=== PATIENT | male | born 1960 | race Caucasian/White ===

== ENCOUNTER 2017-12-22 21:52 | Inpatient (IN) ==
[2017-12-22 22:01] VITALS: BMI 26.9
[2017-12-22] MEDS ORDERED: LIDOCAINE HCL 1% SDV IM STA (22:31)
[2017-12-22] MEDS ORDERED: ROCEPHIN IM STA (22:31)
[2017-12-22] MEDS ORDERED: ZITHROMAX PO STA (22:32)
--- NOTE | 2017-12-22 22:36 | ED.PDOC ---
General ED Provider: Dr. ROSHNI PERKINS Chief Complaint: Penile Problem Stated Complaint: Patient states he has had urinary frequency and burning for the past few days. Time Seen by Physician: 22:32 Mode of Arrival: Walk-In Information Source: Patient Exam Limitations: No limitations Nursing and Triage Documentation Reviewed and Agree: Yes Does patient meet sepsis criteria?: No System Inflammatory Response Syndrome: Not Applicable Sepsis Protocol: For patient's 13 years and over: Temp is 96.8 and below OR 101 and greater Pulse >90 BPM Resp >20/minute Acutely Altered Mental Status Are patient's symptoms suggestive of a new infection, such as: -Pneumonia -Skin, Soft Tissue -Endocarditis -UTI -Bone, Joint Infection -Implantable Device -Acute Abdominal Infection -Wound Infection -Meningitis -Blood Stream Catheter Infection -Unknown Complaint Exam - STD Male Complaint/Exam Onset/Duration: 2 days Symptoms Are: Still present Timing: Constant Current Severity: Moderate Location: Reports: Groin, Penis Character: Other (Buring on urination) Aggravating: Reports: Voiding Alleviating: Reports: None Associated Signs and Symptoms: Reports: Dysuria. Denies: Testicular pain Related Surgical History: Reports: None Genitalia Exam: Present: Testes tender, Penile lesions (white discharge noted on the urethra ) Differential Diagnoses: Balanitis, Urethritis, STD, UTI Review of Systems - Review Of Systems Constitutional: Reports: No symptoms Eyes: Reports: No symptoms Ears, Nose, Mouth, Throat: Reports: No symptoms Respiratory: Reports: No symptoms Cardiac: Reports: No symptoms GI: Reports: No symptoms : Reports: Dysuria, Frequency Musculoskeletal: Reports: No symptoms Skin: Reports: No symptoms Neurological: Reports: No symptoms Endocrine: Reports: Increased thirst Hematologic/Lymphatic: Reports: No symptoms All Other Systems: Reviewed and Negative Past Medical History - Past Medical History Previously Healthy: Yes Endocrine: Reports: DM 2 Cardiovascular: Reports: Hypertension Respiratory: Reports: None Hematological: Reports: None Gastrointestinal: Reports: None Genitourinary: Reports: None Neuro/Psych: Reports: None Musculoskeletal: Reports: None Cancer: Reports: None - Surgical History General Surgical History: Reports: None - Family History Family History: Reports: Unknown - Social History Smoking Status: Current every day smoker, Heavy tobacco smoker Hx Substance Use: No Alcohol Screening: Occasionally - Immunizations Tetanus Shot up to Date: (UNKNOWN) Physical Exam - Physical Exam Appearance: Ill-appearing Ill-appearing: Mild Pain Distress: Moderate Eyes: KATINA, EOMI, Conjunctiva clear ENT: Ears normal, Nose normal, Oropharynx normal Neck: Supple Respiratory: Airway patent, Breath sounds clear, Breath sounds equal, Respirations nonlabored Cardiovascular: RRR, Pulses normal, No rub, No murmur GI/: Soft, Nontender, No masses, Bowel sounds normal, No Organomegaly Musculoskeletal: Normal strength Skin: Warm, Dry Neurological: Alert, Oriented Psychiatric: Anxious Physician Notification - Case Discussed Physician Notified: Dr Toussaint Time of Notification: 23:40 (Admit for hypoglycemia ) Critical Care Note - Critical Care Note Total Time (mins): 0 Course - Course Hematology/Chemistry: 12/22/17 22:38 12/22/17 22:38 Orders, Labs, Meds: Lab Review 12/22/17 12/22/17 12/22/17 22:38 22:38 22:40 WBC 7.32 RBC 5.13 Hgb 15.6 Hct 43.6 MCV 85.0 MCH 30.4 MCHC 35.8 H RDW Coeff of Álvaro 12.7 Plt Count 262 Immature Gran % (Auto) 0.3 Neut % (Auto) 56.3 Lymph % (Auto) 29.2 Kinney % (Auto) 11.3 H Eos % (Auto) 2.2 Baso % (Auto) 0.7 Immature Gran # (Auto) 0.0 Neut # (Auto) 4.1 Lymph # (Auto) 2.1 Kinney # (Auto) 0.8 Eos # (Auto) 0.2 Baso # (Auto) 0.1 Sodium 131 L Potassium 4.1 Chloride 97 L Carbon Dioxide 21 Anion Gap 17.1 BUN 12 Creatinine 1.22 H Estimated GFR (MDRD) 61.00 BUN/Creatinine Ratio 9.83 Glucose 669 H* Calcium 9.3 Total Bilirubin 0.6 AST 12 L ALT 20 Alkaline Phosphatase 121 Total Protein 7.7 Albumin 3.6 Globulin 4.1 Albumin/Globulin Ratio 0.88 Urine Color Yellow Urine Clarity Clear Urine pH 5.5 Ur Specific Cadott <=1.005 Urine Protein Negative Urine Glucose (UA) 3+ H Urine Ketones Negative Urine Blood Negative Urine Nitrite Negative Urine Bilirubin Negative Urine Urobilinogen 0.2 Ur Leukocyte Esterase Negative Acetone, Qual 12/22/17 23:25 WBC RBC Hgb Hct MCV MCH MCHC RDW Coeff of Álvaro Plt Count Immature Gran % (Auto) Neut % (Auto) Lymph % (Auto) Kinney % (Auto) Eos % (Auto) Baso % (Auto) Immature Gran # (Auto) Neut # (Auto) Lymph # (Auto) Kinney # (Auto) Eos # (Auto) Baso # (Auto) Sodium Potassium Chloride Carbon Dioxide Anion Gap BUN Creatinine Estimated GFR (MDRD) BUN/Creatinine Ratio Glucose Calcium Total Bilirubin AST ALT Alkaline Phosphatase Total Protein Albumin Globulin Albumin/Globulin Ratio Urine Color Urine Clarity Urine pH Ur Specific Cadott Urine Protein Urine Glucose (UA) Urine Ketones Urine Blood Urine Nitrite Urine Bilirubin Urine Urobilinogen Ur Leukocyte Esterase Acetone, Qual None Orders Category Date Time Status ACTIVITY .Up ad Shavon CARE 12/22/17 23:36 Ordered BLOOD GLUCOSE MONITORING 0630,1100,1700,2100 CARE 12/22/17 23:37 Ordered GIVE HS SNACK 2100 CARE 12/22/17 23:39 Ordered INTAKE & OUTPUT Q8HR CARE 12/22/17 23:36 Ordered VITAL SIGNS Q4HR CARE 12/22/17 23:36 Ordered ADA 1800 GABRIELLA. DIET DIETARY 12/22/17 Breakfast Ordered HS SNACK DIETARY 12/22/17 Dinner Ordered ED IV/MEDIPORT/POWERPORT .ONCE EMERGENCY 12/22/17 23:15 Active ACETONE, QUALITATIVE Stat LAB 12/22/17 23:25 Ordered CBC W/ AUTO DIFF DAILY@0600 LAB 12/23/17 06:00 Ordered CBC W/ AUTO DIFF DAILY@0600 LAB 12/24/17 06:00 Ordered CBC W/ AUTO DIFF Stat LAB 12/22/17 22:38 Completed CHLAMYDIA/GC AMPLIFICATION Stat LAB 12/22/17 22:40 Received COMPREHENSIVE METABOLIC PANEL DAILY@0600 LAB 12/23/17 06:00 Ordered COMPREHENSIVE METABOLIC PANEL DAILY@0600 LAB 12/24/17 06:00 Ordered COMPREHENSIVE METABOLIC PANEL Stat LAB 12/22/17 22:38 Completed HEMOGLOBIN A1C Stat LAB 12/22/17 23:32 Ordered URINALYSIS C & S IF INDICATED Stat LAB 12/22/17 22:40 Completed 0.9 % Sodium Chloride [Saline Flush] MEDS 12/22/17 23:15 Ordered 1 syr IVF PRN PRN Azithromycin [Zithromax] MEDS 12/22/17 22:32 Discontinued 1,000 mg PO ONCE STA Ceftriaxone Sodium [Rocephin] MEDS 12/22/17 22:31 Discontinued 250 mg IM ONCE STA Enoxaparin Sodium [Lovenox] MEDS 12/23/17 09:00 Ordered 40 mg SUBCUT DAILY Insulin Regular, Human [Humulin R] MEDS 12/22/17 23:36 Ordered 0 - 15 unit SUBCUT PRN PRN Lidocaine HCl/Pf [Lidocaine HCl 1% Sdv] MEDS 12/22/17 22:31 Discontinued 0.9 ml IM ONCE STA Ondansetron HCl/Pf [Zofran 4 mg/2 ml] MEDS 12/22/17 23:36 Ordered 4 mg IVP Q6H PRN Sodium Chloride 0.9% [Sodium Chloride] 1,000 ml MEDS 12/22/17 23:45 Ordered IV 150 mls/hr Sodium Chloride 0.9% [Sodium Chloride] 1,000 ml MEDS 12/22/17 23:15 Active IV BOLUS RESUSCITATION STATUS Routine OTHERS 12/22/17 23:36 Ordered Medications Generic Name Dose Route Start Last Admin Trade Name Freq PRN Reason Stop Dose Admin Enoxaparin Sodium 40 mg 12/23/17 09:00 Lovenox SUBCUT DAILY MIKAELA Sodium Chloride 1,000 mls @ 1,000 mls/hr 12/22/17 23:15 Sodium Chloride IV 12/23/17 00:14 BOLUS STA Sodium Chloride 1,000 mls @ 150 mls/hr 12/22/17 23:45 Sodium Chloride IV .Q6H40M MIKAELA Insulin Human Regular 0 - 15 unit 12/22/17 23:36 Humulin R SUBCUT PRN PRN Hyperglycemica Protocol Ondansetron HCl 4 mg 12/22/17 23:36 Zofran 4 Mg/2 Ml IVP Q6H PRN Nausea / Vomiting Sodium Chloride 1 syr 12/22/17 23:15 Saline Flush IVF PRN PRN To flush IV Discontinued Medications Generic Name Dose Route Start Last Admin Trade Name Freq PRN Reason Stop Dose Admin Azithromycin 1,000 mg 12/22/17 22:32 12/22/17 22:45 Zithromax PO 12/22/17 22:33 1,000 mg ONCE STA Administration Ceftriaxone Sodium 250 mg 12/22/17 22:31 12/22/17 22:46 Rocephin IM 12/22/17 22:32 250 mg ONCE STA Administration Lidocaine HCl 0.9 ml 12/22/17 22:31 12/22/17 22:47 Lidocaine Hcl 1% Sdv IM 12/22/17 22:32 0.9 ml ONCE STA Administration Vital Signs: Temp Pulse Resp BP Pulse Ox 12/22/17 21:53 99.5 F 87 20 127/84 98 Departure - Departure Time of Disposition: 23:15 Disposition: ADMITTED INPATIENT Discharge Problem: Hyperglycemia without ketosis Condition: Stable Pt referred to PMD for follow-up: Yes IPMP verified?: No Allergies/Adverse Reactions: Allergies No Known Allergies Allergy (Unverified 01/11/13 23:19) Home Medications: Ambulatory Orders 1 [Unobtainable] 12/22/17
[2017-12-22] MEDS ORDERED: SODIUM CHLORIDE 1,000 ML IV STA (23:15)
[2017-12-22] MEDS ORDERED: ZOFRAN 4 MG/2 ML IVP PRN (23:36)
[2017-12-23] MEDS: SODIUM CHLORIDE 1,000 ML IV SCH ×4 (01:42→15:03)
[2017-12-23] MEDS: HUMULIN R SUBCUT PRN ×4 (05:50→20:21)
[2017-12-23] MEDS: GLUCOTROL PO SCH ×2 (08:36→17:13)
[2017-12-23] MEDS: GLUCOPHAGE PO SCH ×2 (08:38→17:13)
[2017-12-23] MEDS: LOVENOX SUBCUT SCH (08:39)
[2017-12-24] MEDS: SODIUM CHLORIDE 1,000 ML IV SCH (04:46)
[2017-12-24] MEDS: HUMULIN R SUBCUT PRN (06:53)
[2017-12-24] MEDS ORDERED: ZESTRIL PO SCH (09:00)
[2017-12-24] MEDS: GLUCOPHAGE PO SCH (09:56)
[2017-12-24] MEDS: GLUCOTROL PO SCH (09:56)
[2017-12-24] MEDS: LOVENOX SUBCUT SCH (09:57)
[2017-12-24 10:36] VITALS: BP 118/79; TEMP 97.6
--- NOTE | 2017-12-24 14:47 | HP ---
DATE OF SERVICE: 12/23/17 CHIEF COMPLAINT: Burning and frequency of urination and elevated sugar. HISTORY OF PRESENT ILLNESS: 57 year man was found to have a sugar of 669. The patient was seen by Dr. Oscar in the emergency room and A1c was 12.8. Urine was negative for infection. Toxicology is negative. The acetone is negative. The patient is not aware of the diabetes so at that time the patient being admitted to the hospital for hyperosmolar hyperglycemia. REVIEW OF SYSTEMS: CONSTITUTIONAL: No fever, no chills. Elevated blood sugar. HEENT: Normal. ENDOCRINE: No weight gain; no weight loss. CVS: No chest pain. No PND, no orthopnea. No shortness of breath. No PND, no orthopnea. RESPIRATORY: No cough, no congestion. No hemoptysis. GI: No nausea, no vomiting. No abdominal pain. No melena. : No hematuria. No polyuria. Frequency and burning of urination. MUSCULOSKELETAL: No joint swelling. PSYCHIATRIC: Not anxious. No depression. No suicidal thoughts. No homicidal thoughts. SKIN: Intact, no open lesions. PAST MEDICAL HISTORY: History of diarrhea Change in bowel pattern History of GI bleeding History of Gonorrhea Alcohol use Diabetes which is new diagnosis PAST SURGICAL HISTORY: Left broken arm Left middle finger broken PERSONAL HISTORY: The patient does smoke and drinks occasional. Substance abuse disorder in the past. FAMILY HISTORY: CHF Thyroid cancer MEDICATIONS: Bisoprolol Amlodipine ALLERGIES: No known drug allergies PHYSICAL EXAMINATION: V/S: Blood pressure 118/77, respiratory rate 20, heart rate 77, temperature 99.0 with saturation 97%. HEENT: Atraumatic, normocephalic. No scleral icterus. Pallor positive. Mucosa dry. NECK: Supple. No JVD, no bruit. No lymphadenopathy. No thyromegaly. HEART: S1, S2 normal. No murmur. No cyanosis or clubbing. No ascites. LUNGS: Clear to auscultation. No rales or rhonchi. ABDOMEN: Soft, nontender. Bowel sounds are active. No CVA tenderness. No rigidity or guarding. EXTREMITIES: No pedal edema. No cyanosis or clubbing MUSCULOSKELETAL: Normal joints, no swelling. NEUROLOGIC: The patient is SKIN: Intact; no open lesions. LYMPHATIC: No lymph nodes palpable. LABS: Sodium 131, potassium 4.1, chloride 97, bicarb 21, BUN 12, creatinine 1.22 and glucose 669 and today morning is 361. WBC 6.78, hgb 14.7, hct 42.4, plt count 228 ASSESSMENT: 1. Hyperosmolar hyperglycemia 2. New onset diabetes PLAN: 1. Admit patient to the regular floor 2. CBC and CMP today and daily 3. TSH and Lipids 4. Will start the patient on Metformin and Glipizide 5. Accu-checks with coverage TIME SPENT: MORE THAN 65 minutes MTDD
--- NOTE | 2017-12-30 13:09 | DS ---
DATE OF SERVICE: 12/24/17 FINAL DIAGNOSIS: 1. Hyperosmolar hyperglycemia 2. New onset diabetes mellitus, A1c 12.8 3. Hypertension 4. Obesity DISCHARGE INSTRUCTIONS: Discharge the patient home. Lifestyle modification weight loss and diet control been discussed. Followup in the [facility] in with 5-7 days. Stop the Amlodipine Besylate and Ziac. MEDICATIONS AT DISCHARGE/NEW PRESCRIPTIONS: Lisinopril 10mg PO daily Glipizide 10mg PO twice a day Metformin 500mg PO twice a day DIET INSTRUCTIONS: Cardiac and Healthy ACTIVITY: As much as tolerated DISEASE SPECIFIC EDUCATION: Diabetes Accu-checks been discussed and verbalized understanding. HOSPITAL COURSE: Gera Carpenter 57 year old male who came to the hospital complaining of the burning and frequency of urination and seen by Dr. Cho in the emergency room and found to have sugars of 600. The patient was admitted for the hyperosmolar hyperglycemia to the hospital. With the sugars of 600 the patient was started on the Accu-checks with the coverage by the next day the sugars were better. At that time the patient was started on the Metformin 500mg twice a day and Glipizide 10mg PO twice a day. Diet and weight loss been discussed and verbalized understanding. The patient sugars came down to below 300 and did not have any complications or problems. Manager Asset did talk to the patient and he understand the need of diabetic medications and lifestyle modification and weight loss. As the patient been doing good the patient is being discharged home. TIME SPENT: MORE THAN 65 MINUTES MTDD
== END 2017-12-24 12:21 | disposition home or self-care (01) | DRG 695 ==
LOC: ED 21:52 → MEDSURG B 23:40
PROVIDERS: ADMIT Emergency Medicine; ATTEND Emergency Medicine
DX: R30.9 Painful micturition, unspecified (principal); E11.10 Type 2 diabetes mellitus with ketoacidosis without coma; R30.0 Dysuria; F41.9 Anxiety disorder, unspecified; I10 Essential (primary) hypertension; E66.9 Obesity, unspecified; Z68.26 Body mass index [BMI] 26.0-26.9, adult
CPT/HCPCS: 36415; 80053; 80061; 81001; 82009; 82962; 83036; 85025; 87800; 96360; 96372; 97802; 99284

== ENCOUNTER 2018-04-08 09:44 | Emergency (ER) ==
[2018-04-08 09:50] VITALS: BP 157/98; TEMP 97.5; BMI 25.2
--- NOTE | 2018-04-08 10:23 | ED.PDOC ---
General ED Provider: Dr. JENNIFER MADRID Chief Complaint: Respiratory Complaint Stated Complaint: Chest congestion - 2 weeks Time Seen by Physician: 10:23 Mode of Arrival: Walk-In Information Source: Patient Exam Limitations: No limitations Primary Care Provider: GERMAIN RUIZ Nursing and Triage Documentation Reviewed and Agree: Yes Does patient meet sepsis criteria?: No System Inflammatory Response Syndrome: Not Applicable Sepsis Protocol: For patient's 13 years and over: Temp is 96.8 and below OR 101 and greater Pulse >90 BPM Resp >20/minute Acutely Altered Mental Status Are patient's symptoms suggestive of a new infection, such as: -Pneumonia -Skin, Soft Tissue -Endocarditis -UTI -Bone, Joint Infection -Implantable Device -Acute Abdominal Infection -Wound Infection -Meningitis -Blood Stream Catheter Infection -Unknown Review of Systems - Review Of Systems Constitutional: Reports: Malaise Respiratory: Reports: Cough Musculoskeletal: Reports: Other (Had "charley horse" L knee this AM) All Other Systems: Reviewed and Negative Past Medical History - Past Medical History Previously Healthy: Yes Endocrine: Reports: DM 2 Cardiovascular: Reports: Hypertension Respiratory: Reports: None Hematological: Reports: None Gastrointestinal: Reports: None Genitourinary: Reports: None Neuro/Psych: Reports: None Musculoskeletal: Reports: None Cancer: Reports: None - Surgical History General Surgical History: Reports: None - Family History Family History: Reports: Unknown - Social History Smoking Status: Current every day smoker, Heavy tobacco smoker Hx Substance Use: No Alcohol Screening: Occasionally Physical Exam - Physical Exam Appearance: Well-appearing Eyes: KATINA, EOMI ENT: Ears normal, Oropharynx normal Neck: Supple Respiratory: Airway patent, Breath sounds clear Cardiovascular: RRR, Pulses normal GI/: Soft, Nontender Musculoskeletal: Normal strength, ROM intact Skin: Warm, Dry Neurological: Sensation intact, Motor intact, Alert, Oriented Psychiatric: Affect appropriate, Mood appropriate Interpretation - Radiology Interpretation Radiology Interpretation By: Radiologist Radiology Results: No acute changes Exam Interpreted: CXR Critical Care Note - Critical Care Note Total Time (mins): 10 Course - Course Orders, Labs, Meds: Lab Review 04/08/18 12:10 Influ A Molecular Assay Negative by naat Influ B Molecular Assay Negative by naat Orders Category Date Time Status FLU A & B MOLECULAR [FLU A/B MOLECULAR] Stat LAB 04/08/18 12:10 Completed MOLECULAR GROUP A STREP Stat LAB 04/08/18 12:10 Completed CHEST, 2 VIEWS PA & LAT Stat RADS 04/08/18 10:42 Completed Flu and Strep negative Vital Signs: Temp Pulse Resp BP Pulse Ox 04/08/18 09:46 97.5 F L 89 16 157/98 H 96 Departure - Departure Time of Disposition: 12:54 Disposition: HOME SELF-CARE Discharge Problem: Bronchitis Instructions: Acute Bronchitis (ED) Condition: Good Pt referred to PMD for follow-up: Yes (Call for appointment) IPMP verified?: No (No narcotic prescribed) Additional Instructions: Take antibiotic as prescribed; follow up with primary care if not better in 1 week. Prescriptions: Doxycycline Hyclate 100 mg PO BID #20 capsule Allergies/Adverse Reactions: Allergies No Known Allergies Allergy (Verified 04/08/18 09:50) Home Medications: Ambulatory Orders Doxycycline Hyclate 100 mg PO BID #20 capsule 04/08/18
--- NOTE | 2018-04-08 11:08 | DI ---
EXAM: Two views of the chest. History: Cough. Findings: Heart size is normal. No focal consolidation. No appreciable pleural fluid and no pneumo thorax. No acute osseous abnormalities. Impression: No acute cardiopulmonary process
== END 2018-04-08 13:11 | disposition home or self-care (01) ==
LOC: ED 09:44
DX: J40 Bronchitis, not specified as acute or chronic (principal); F17.210 Nicotine dependence, cigarettes, uncomplicated
CPT/HCPCS: 87502; 87651; 99282

== ENCOUNTER 2018-08-18 09:24 | Emergency (ER) ==
[2018-08-18 09:36] VITALS: BP 161/108; TEMP 97.4; BMI 25.9
--- NOTE | 2018-08-18 10:05 | ED.PDOC ---
General ED Provider: Dr. BRIGHT SIDDIQUI Chief Complaint: Knee Pain/Injury Stated Complaint: one month of swelling and pain in left knee medial.Can. 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 Time Seen by Physician: 09:30 Mode of Arrival: Walk-In Information Source: Patient Exam Limitations: No limitations Primary Care Provider: GERMAIN RUIZ Nursing and Triage Documentation Reviewed and Agree: Yes Does patient meet sepsis criteria?: No System Inflammatory Response Syndrome: Not Applicable Sepsis Protocol: For patient's 13 years and over: Temp is 96.8 and below OR 101 and greater Pulse >90 BPM Resp >20/minute Acutely Altered Mental Status Are patient's symptoms suggestive of a new infection, such as: -Pneumonia -Skin, Soft Tissue -Endocarditis -UTI -Bone, Joint Infection -Implantable Device -Acute Abdominal Infection -Wound Infection -Meningitis -Blood Stream Catheter Infection -Unknown Musculoskeletal Complaint Exam - Lower Extremity Complaint/Exam Location of Pain: Reports: Left Mechanism of Injury: Reports: Trauma Onset/Duration: 1 month from apparent ligamenmt enthesis pull oin left medial knee Symptoms Are: Still present Onset of Pain: Reports: Immediate Initial Severity: Moderate Current Severity: Moderate Location: Reports: Discrete Character: Reports: Aching Alleviating: Reports: Position Aggravating: Reports: Movement, Weight bearing, Prolonged standing Able to Bear Weight: No Associated Signs and Symptoms: Reports: Swelling Related History: Reports: Occupational injury DVT Risk Factors: Reports: None Septic Arthritis Risk Factors: Reports: None Related Surgical History: Reports: None Lower Extremity Findings: Present: Swelling Yuval's Sign Present: No Differential Diagnoses: Arthritis, Contusion, Strain - Back Pain Complaint/Exam Mechanism of Injury: Reports: Trauma Symptoms Are: Still present Timing: Intermittent Episodes Lasting: Weeks Initial Severity: Moderate Current Severity: Moderate Location: Reports: Discrete Character: Reports: Aching Aggravating: Reports: Movements Alleviating: Reports: Rest Associated Signs and Symptoms: Reports: Swelling Related History: Reports: Occupational injury TAD Risk Factors: Reports: Hypertension Cauda Equina Risk Factors: Reports: None Related Surgical History: Reports: None Paraspinal Muscle Spasm: No Scoliosis: No Lordosis: No SLR Test: Right Positive Gait: Present: Unsteady - Knee Pain Complaint/Exam Symptoms Are: Still present Onset of Pain: Reports: Immediate Initial Severity: Moderate Current Severity: Moderate Location: Reports: Discrete Character: Reports: Aching Alleviating: Reports: Rest Aggravating: Reports: Movement Associated Signs and Symptoms: Reports: Swelling Able to Bear Weight: No Related History: Reports: Occupational injury Septic Arthritis Risk Factors: Reports: None Knee Findings: Present: Swelling Limited Range of Motion: Present: Flexion Differential Diagnoses: Bursitis, Tendonitis, Contusion, Sprain, Strain, Gout Review of Systems - Review Of Systems Constitutional: Reports: Sweats Eyes: Reports: Decreased acuity Ears, Nose, Mouth, Throat: Reports: No symptoms Respiratory: Reports: No symptoms Cardiac: Reports: No symptoms GI: Reports: No symptoms : Reports: No symptoms Musculoskeletal: Reports: Joint pain Skin: Reports: No symptoms Neurological: Reports: No symptoms Endocrine: Reports: No symptoms Hematologic/Lymphatic: Reports: No symptoms All Other Systems: Reviewed and Negative Past Medical History - Past Medical History Previously Healthy: Yes Endocrine: Reports: DM 2 Cardiovascular: Reports: Hypertension Respiratory: Reports: None Hematological: Reports: None Gastrointestinal: Reports: None Genitourinary: Reports: None Neuro/Psych: Reports: None Musculoskeletal: Reports: None Cancer: Reports: None - Surgical History General Surgical History: Reports: None - Family History Family History: Reports: Unknown - Social History Smoking Status: Current every day smoker, Heavy tobacco smoker Hx Substance Use: No Alcohol Screening: Occasionally Physical Exam - Physical Exam Appearance: Well-appearing Ill-appearing: None Pain Distress: None Eyes: KATINA ENT: Ears normal Neck: Supple Respiratory: Airway patent Cardiovascular: RRR GI/: Tender Musculoskeletal: Limited ROM Skin: Warm Neurological: Sensation intact, Motor intact Psychiatric: Affect appropriate Critical Care Note - Critical Care Note Total Time (mins): 0 Course - Course Orders, Labs, Meds: Orders Category Date Time Status CBC W/ AUTO DIFF Stat LAB 08/18/18 10:45 Received URIC ACID Stat LAB 08/18/18 10:[address] KNEE LEFT WITHOUT CONTRAST Stat RADS 08/18/18 10:[address] KNEE LEFT WITHOUT CONTRAST Stat RADS 08/18/18 11:29 Ordered Vital Signs: Temp Pulse Resp BP Pulse Ox 08/18/18 09:25 97.4 F L 85 20 161/108 H 97 Departure - Departure Time of Disposition: 11:48 Disposition: HOME SELF-CARE Discharge Problem: Knee pain Instructions: Knee Pain (ED) Condition: Good Pt referred to PMD for follow-up: Yes (follow with MRI and document management specialist /Stone MARTÍNEZ,) IPMP verified?: No Allergies/Adverse Reactions: Allergies No Known Allergies Allergy (Verified 08/18/18 09:33) Home Medications: Ambulatory Orders 1 [No Reported Medications] 08/18/18 Disposition Discussed With: Patient, Family
--- NOTE | 2018-08-18 10:54 | CT ---
EXAM: CT of the left knee without contrast History: Right knee pain and tenderness. Technique: Multiplanar CT images through the right knee were obtained without the administration of IV contrast Findings: No acute fracture or dislocation. Mild tricompartmental joint space narrowing with tiny o steophytes. Trace joint effusion. There is fluid and edema seen along the medial ligamentous struct ures. 1.6 cm lobulated area of fluid within the popliteal fossa. Varicose veins are seen along the medial aspect of the knee. Impression: 1. No acute fracture or dislocation. 2. Fluid and edema along the medial ligamentous structures suspicious for MCL injury. Recommend fur ther evaluation with MRI. 3. Cardenas's cyst. 4. Varicose veins seen medially. 5. Mild arthritis
== END 2018-08-18 12:30 | disposition home or self-care (01) ==
LOC: ED 09:24
DX: M25.562 Pain in left knee (principal); X50.0XXA Overexertion from strenuous movement or load, initial encounter; F17.210 Nicotine dependence, cigarettes, uncomplicated
CPT/HCPCS: 36415; 84550; 85025; 99282